=== PATIENT | female | born 1990 | race Caucasian/White ===

== ENCOUNTER 2024-12-12 17:56 | Emergency (ER) | payer OTHER, SELFPAY ==
--- NOTE | ~2024-12-12 | XR_ITS ---
EXAM: XR hand LT min 3V, XR wrist LT min 3V DATE: 12/12/2024 18:28 (accession [id number]), 12/12/2024 18:34 (accession [id number]) HISTORY: pain,injury . COMPARISON: None available. FINDINGS: Exam limited by the presence of a ring which was not removed. Normal mineralization. No fra cture or dislocation. No lytic or blastic lesion. Joint spaces are maintained. No erosion or perioste al change. Soft tissues within normal limits. IMPRESSION: No acute osseous finding in the left hand or wrist. Reviewed, dictated and finalized at location K. IMPRESSION: No acute osseous finding in the left hand or wrist.
[2024-12-12 17:58] VITALS: BP 132/67; PULSE 71; RESP 18; TEMP 36.5; O2SAT 98
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
--- NOTE | 2024-12-12 19:49 | PC.NURSE ---
SEA wrap and finger splint applied
== END 2024-12-12 20:30 | disposition home or self-care (01) ==
PROVIDERS: Emergency Provider Emergency Medicine; PCP Family Medicine
DX: S63.602A Unspecified sprain of left thumb, initial encounter (principal); Y04.0XXA Assault by unarmed brawl or fight, initial encounter
CPT/HCPCS: 73110; 73130; 99283

== ENCOUNTER 2025-04-06 15:10 | Emergency (ER) | payer OTHER, SELFPAY ==
--- OUTSIDE RECORDS SUMMARY | 2025-04-06 15:13 | XMS_ITS | Clinical Summary ---
Author Organization [facility] Address [address] [place] [address] Phone Care Team Providers Care Psychic Reader Name Role Phone Shelly Ignacio MD Primary Care Provider [phone] Allergies Active Allergy Reactions Criticality Noted Date Comments Azithromycin Other (see Comments) 01/02/2025 Abdominal pain/cramps Penicillin G Anaphylaxis 01/02/2025 Medications FLUoxetine (PROzac) 20 MG Capsule Take 20 mg by mouth daily. Active Erenumab-aooe (Aimovig) 140 MG/ML Solution Auto-injector by Subcutaneous route. Active propranolol (INDERAL) 10 MG TabletIndicatio ns:Anxiety Take 10 mg by mouth 3 times daily as needed for Other. Indications: Feeling Anxious Active HYDROcodone-karen taminophen (NORCO) 5-325 MG TabletIndicatio ns:Closed displaced fracture of distal phalanx of right ring finger, initial encounter Take 1 Tablet by mouth every 6 hours as needed for Severe pain. 20 Tablet Active Family History Medical History Relation Name Comments No Known Problems Father No Known Problems Mother Relation Name Status Comments Father Alive Mother Alive Social History Tobacco Use Types Packs/Day Years Used Date Smoking Tobacco: Every Day Cigarettes 1 10 Smokeless Tobacco: Never Tobacco Cessation:Ready to Q uit: Not Asked; Counseling Given: Not Answered Alcohol Use Standard Drinks/Week Comments Not Currently 0 (1 standard drink = 0.6 oz pur e alcohol) socially PHQ-2 Answer Date Recorded Total Score - Questions 1-9 2 05/10 Comments No Sex and Gender Information Value Date Recorded Sex Assigned at Not on file Legal Sex Female 9:59 PM CDT Gender Identity Not on file Sexual Orientation Not on file Last Filed Vital Signs Vital Sign Reading Time Taken Comments Blood Pressure 118/58 01/02/2025 9:43 PM CDT Pulse 92 01/02/2025 9:43 PM CDT Temperature 37.2 C (98.9 F) 01/02/2025 7:54 PM CDT Respiratory Rate 18 01/02/2025 9:43 PM CDT Oxygen Saturation 100% 01/02/2025 9:43 PM CDT Inhaled Oxygen Concentration - - Weight 58.1 kg (128 lb) 01/02/2025 7:54 PM CDT Height 167.6 cm (5' 6) 01/02/2025 7:54 PM CDT Body Mass Index 20.66 01/02/2025 7:54 PM CDT Plan of Treatment Health Maintenance Due Date Last Done Comments Hepatitis C Virus (HCV) Screening 1989 Human Papillomavirus (HPV) Immunization (1 - 3-dose series) 02/27/2004 Pap Smear 2010 Cervical Cancer Screening (CCS) 2019 HPV/Cotest 2019 SARS-COV-2 Immunization ( season) 2024 09/04/2021, 08/14/2021 Influenza Immunization (#1) 05/10/202506/09, 05/24/2023, 06/07/2022, Additional history exists Respiratory Syncytial Virus (RSV) Immunization (Adult) (1 - 1-dose 75+ series) 02/27/2064 Hepatitis B Immunization Completed 014, 12/02/1998, 07/21/1998, Additional history exists DTaP/Tdap/Td Immunization Discontinued 01/22/2019, 08/1994 Meningococcal Immunization (ACWY) Aged Out 01/22/2019 No longer eligible based on patient's age to complete this topic TdaP Immunization Completed 01/22/2019 Pneumococcal Immunization Combined Completed 09/10/2023 Rotavirus Immunization Aged Out No lo nger eligible based on patient's age to complete this topic Goals Goal Patient Goal Type Associated Problems Recent Progress Patient-Stated? Author letting go Behavioral Health Yes EttaJoanna harry LCSW learn coping skills Behavioral Health Joanna Quiles LCSW Note: Goal/Objective: Reduce anxiety and depression. Anticipated Time Frame for Goal Completion: 6 months Goal Reviewed with: patient Readiness to change: Thinking about making a change Department associated with goal: [facility] Steps to achieve goal: will identify at least two coping skills/activities/habits that have helped to manage anxiety in the past. will identify at least three new coping skills/activities/habits that may help to prevent and/or cope with anxiety. 3. will identify a plan to implement coping skills and follow this plan for two weeks and evaluate the impact on anxiety 4. Will attend individual and/or group therapy at least 1x/month at least 6 sessions Insurance [facility] Care Teams Psychic Reader Relationship Specialty Start Date End Date Shelly Ignacio MD [address] [place] [id number] PCP - General 05/03/22
--- NOTE | 2025-04-06 15:16 | ED.URI ---
HPI - URI/Sore Throat General Chief Complaint: Upper Respiratory Infection Stated Complaint: nose/throat/ears Time Seen by Provider: 04/06/25 15:16 Source: patient, RN notes reviewed and old records reviewed Mode of arrival: ambulatory Limitations: no limitations History of Present Illness HPI Narrative: 35-year-old female presents to the [facility] with complaints of a sore throat, runny nose, ear pressure since Saturday, 3 days. States denies fevers. Did take 1 Zyrtec today. Had taken ibuprofen. Related Data Allergies Allergy/AdvReac Type Severity Reaction Status Date / Time Penicillins Allergy Anaphylactic Verified 12/12/24 17:57 Shock azithromycin AdvReac Abdominal Verified 12/12/24 17:57 Pain Review of Systems Review of Systems: All systems reviewed & are unremarkable except as noted in HPI and below Constitutional: Constitutional: Reports no additional constitutional complaints ENT: Reports as per HPI, Reports post nasal drip, Reports sore throat and Reports other (Rhinorrhea, ear pressure) Cardiovascular: Cardiovascular: Reports no additional cardiovascular complaints, Denies chest pain and Denies dyspnea Respiratory: Respiratory: Reports no additional respiratory complaints, Denies chest congestion, Denies cough and Denies dyspnea Musculoskeletal: Musculoskeletal: Reports no additional musculoskeletal complaints Integumentary/Breasts: Skin/Breast: Reports system reviewed and no additional complaints, except as docu PMFSH Comments At the time of my signature, I reviewed and agree with the nursing past medical, surgical, social, and family history. There is no relevant family history pertinent to the patient complaint. Exam Const: General: cooperative, healthy appearing, comfortable, no acute distress, well developed, alert and well nourished Nutritional Appearance: well nourished Orientation/consciousness: patient oriented x3 Limitations: no limitations HENMT: Head: normal to inspection Ears: hearing grossly normal bilaterally, external ears normal, TM's normal bilaterally, EAC's normal, mastoids normal and no periauricular adenopathy Mouth: Yes Normal oral and palatal mucosa present, Yes lip normal, Yes tongue normal and Yes moist mucous membranes Throat: posterior oropharynx normal, uvula midline, postnasal drainage and no uvular edema Eyes: General: appearance normal, both eyes and all related structures Alignment and Position: alignment normal Neck: Neck: normal visual inspection, full ROM, no lymphadenopathy and no meningeal signs Chest: Chest palpation & inspection: normal inspection of the chest Resp: Effort & Inspection: normal respiratory effort and able to speak in complete sentences Auscultation: clear to auscultation bilaterally, no crackles, no rales, no rhonchi and no wheezes Cardio: Rate: regular rate Skin: General skin exam: normal color and no rashes or lesions noted Neuro: General: patient oriented x3, gait normal, moves all extremities and no meningeal signs Cognition (Neuro): normal cognition Speech: normal speech Gait exam (Neuro): Normal gait present Extrem: General: normal to inspection, full ROM, capillary refill normal and normal gait Psych: Appearance: grossly normal and well kempt Mental Status: mental status grossly normal Speech and movement: Normal speech and movement present and Clear speech present Affect: normal affect Attitude: cooperative Course Course Level of Care: Express Care Visit Vital Signs Vital signs: Vital Signs Temperature 98.0 F 04/06/25 15:17 Pulse Rate 70 04/06/25 15:17 Respiratory Rate 18 04/06/25 15:17 Blood Pressure 122/74 04/06/25 15:17 Pulse Oximetry 98 04/06/25 15:17 Oxygen Delivery Room Air 04/06/25 15:17 Temperature 98.0 F 04/06/25 15:17 Pulse Rate 70 04/06/25 15:17 Respiratory Rate 18 04/06/25 15:17 Blood Pressure 122/74 04/06/25 15:17 Pulse Oximetry 98 04/06/25 15:17 Oxygen Delivery Room Air 04/06/25 15:17 Reviewed MDM - URI/Sore Throat MDM Narrative Medical decision making narrative: Patient with 3 day history of URI symptoms. To take when Zyrtec today. No other treatment prior to arrival Patient flu, COVID, strep are negative, will send for strep culture No acute findings noted except for postnasal drainage Patient appropriate for outpatient treatment with close follow-up Discharge instructions reviewed with patient, as well as provided in writing per nursing staff. The instructions also include specific and strict return/GO TO THE ER as well as f/u information. All questions have been answered, and the patient deny any further questions with discharge and discharge plan. Some parts of this dictation were generated by voice recognition software and may contain typographical and/or grammatical inaccuracies. Differential Diagnosis Differential diagnosis: Likely upper respiratory infection, otitis media, sinusitis, viral infection, bronchitis, influenza and pharyngitis Lab Data Labs: Lab Results 04/06/25 04/06/25 Range/Units 15:30 15:33 POC Influenza A Ag Negative (Negative) POC Influenza B Ag Negative (Negative) POC SARS CoV-2 Ag Negative (Negative) POC Grp A Strep Screen Negative (Negative) Reviewed Critical Care Time Critical Care Time Critical Care Time: No Discharge Plan Discharge Clinical Impression: Upper respiratory infection Qualifiers: URI type: unspecified viral URI Qualified Code(s): J06.9 - Acute upper respiratory infection, unspecified Patient Disposition: Home Condition: Stable Instructions: Antibiotic Form, Upper Respiratory Infection (DC) Additional Instructions: Your rapid strep swab was negative today at [facility]. A throat culture will be sent to the laboratory for further testing. If the test is positive, you will receive a phone call within 48 hours and an appropriate antibiotic will be initiated at that time. Your rapid COVID test were negative Your rapid flu test was negative Your symptoms are likely due to a viral illness, which is not treated with antibiotics. Typically viral infections last 7-10 days, can linger for couple of weeks. It is very important to treat your symptoms. Drink plenty of water, Gatorade, Pedialyte, ice pops or Jell-O. -Alternate Tylenol and Motrin per package directions for fever or pain. You can alternate every 4 hours -Antihistamine medication such as Zyrtec/Claritin/Devora during the day can help improve symptoms. -doing daily nasal irrigations can help relieve pressure your sinuses. Things like a Neti pot -Use Flonase twice a day for 5 days then daily to help reduce the inflammation and dry up your sinuses. -You can also use Mucinex. Be sure to drink plenty of water with this medication at least 8 ounces with every dose and it is important to drink 8 to 10 glasses of water per day. Water is a natural decongestant -Eat and drink things that are easy to swallow, like tea or soup, or popsicles. -Oral rinses such as: Salt water gargles and/or may use topical anesthetic (eg. Chloraseptic spray) or lozenges to relieve dryness or throat pain). -Frequent hand washing or hand photo mask pattern generator is one of the best ways to prevent spread of infection. -Using a vaporizer or humidifier at night will also help thin secretions and help with coughing up phlegm. -Follow up with primary care provider in 7-10 days if condition is not improving - For new or worsening symptoms go directly to the nearest ER Patient Language: Persian Follow-up/Referrals: FARNAZ,MD KORY [Primary Care Provider] - 2 Weeks ([facility] follow-up) Stand Alone Forms: Work/School Release IP Time of Disposition: 15:36
[2025-04-06 15:17] VITALS: BP 122/74; PULSE 70; RESP 18; TEMP 36.7; O2SAT 98
[2025-04-06 15:32] LABS: EDSTREPNEGPOS1 Negative (Negative)
[2025-04-06 15:35] LABS: EDCOVIDSCREEN Negative (Negative); EDINFLUASCREEN Negative (Negative); EDINFLUBSCREEN Negative (Negative)
== END 2025-04-06 15:45 | disposition home or self-care (01) ==
PROVIDERS: Emergency Provider Nurse Practitioner; PCP Family Medicine
DX: J06.9 Acute upper respiratory infection, unspecified (principal); Z20.822 Contact with and (suspected) exposure to COVID-19
CPT/HCPCS: 87081; 87426; 87804; 87880; 99212; G0463